=== PATIENT | female | born 2005 | race Two or more races ===

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

== ENCOUNTER 2024-01-02 12:35 | Emergency (ER) | payer BC ==
[~2024-01-02] VITALS: Ht 162.6 cm; Wt 59.9 kg
[~2024-01-02 12:35] MED LIST changes: +PANT40TA2 PO
[2024-01-02] MEDS ORDERED: IBUPROFEN 600 MG TABLET ONE (12:57)
[2024-01-02] MEDS: IBUPROFEN 600 MG TABLET PO ONE (13:01)
[2024-01-02 13:47] VITALS: BP 125/66; TEMP 98.5; O2SAT 99
== END 2024-01-02 13:47 | disposition home or self-care (01) ==
LOC: ER 12:50
DX: S82.892A Other fracture of left lower leg, initial encounter for closed fracture (principal); Z79.899 Other long term (current) drug therapy; X50.1XXA Overexertion from prolonged static or awkward postures, initial encounter; Y93.66 Activity, soccer; Y92.89 Other specified places as the place of occurrence of the external cause; Y99.8 Other external cause status
CPT/HCPCS: 73610-TC; 73630-TC